=== PATIENT | female | born 1940 | race Caucasian/White ===

== ENCOUNTER 2017-12-01 09:27 | Outpatient (CLI) | payer MEDICARE, MEDICAID, SELFPAY ==
[2017-12-01 11:37] LABS: INR 2.2 (1.0-3.5)
[2017-12-01 12:25] LABS: TSH (W/Ref FT4) 1.13 uIU/mL (0.358-3.74)
== END 2017-12-01 09:47 ==
PROVIDERS: PCP Family Medicine; Visit Provider Internal Medicine
DX: E03.9 Hypothyroidism, unspecified (principal); I26.99 Other pulmonary embolism without acute cor pulmonale; Z79.01 Long term (current) use of anticoagulants
CPT/HCPCS: 36415; 84443; 85610

== ENCOUNTER 2018-07-27 02:02 | Outpatient (CLI) | payer MEDICARE, MEDICAID, SELFPAY ==
[2018-07-27 15:48] LABS: Abs Immature Grans 0.02 k/cumm (0.0-0.09); Absolute Basophil Count 0.03 k/cumm (0.0-0.2); Absolute Eosinophil Count 0.08 k/cumm (0.0-0.7); Absolute Lymphocyte Count 1.68 k/cumm (1.2-3.4); Absolute Monocyte Count 0.56 k/cumm (0.11-0.7); Absolute Neutrophil Count 5.71 k/cumm (1.2-6.7); Basophils % 0.4; HCT 41.3 % (36.0-46.0); HGB 13.3 g/dL (12.0-15.5); Immature Grans % 0.2; Lymphocytes % 20.8; Mean Corp. HGB Concentration 32.2 g/dL (32.0-36.0); Mean Corpuscular Hemoglobin 28.9 pg (27.0-33.0); Mean Corpuscular Volume 89.6 fL (80-95); Mean Platelet Volume 10.7 fL (8.0-11.0); Monocytes % 6.9; Neutrophils % 70.7; Platelet Count 235 x1000/uL (130-400); RBC 4.61 m/cumm (4.00-5.20); RBC Distribution Width 14.8 % (11.7-14.6); White Blood Cell Count 8.08 k/cumm (4.4-10.8)
[2018-07-27 16:47] LABS: ALT 52 U/L (12-78); AST 42 U/L (15-37); Albumin 3.8 g/dL (3.4-5.0); Alkaline Phosphatase 89 U/L (46-116); Anion Gap 10.7 mmol/L (3-11); BUN 24 mg/dL (7-18); Bilirubin, Total 0.3 mg/dL (0.2-1.0); CO2 25.3 mmol/L (21.0-32.0); CREATININE 0.91 mg/dL (0.55-1.02); Calcium 8.7 mg/dL (8.5-10.1); Chloride 106 mmol/L (98-107); Estimated GFR 59.94 (mL/min/1.73m2); Glucose 103 mg/dL (70-100); Sodium 142 mmol/L (136-145); Total Protein 6.8 g/dL (6.4-8.2)
== END 2018-07-27 02:22 ==
PROVIDERS: Internal Medicine; PCP Family Medicine; Visit Provider Family Medicine
DX: R10.9 Unspecified abdominal pain (principal); I10 Essential (primary) hypertension; E03.9 Hypothyroidism, unspecified
CPT/HCPCS: 36415; 80053; 85025

== ENCOUNTER 2018-08-04 13:22 | Emergency (ER) | payer MEDICARE, MEDICAID, SELFPAY ==
[2018-08-04] VITALS (24 sets, daily range): BP systolic 151–183; BP diastolic 35–101; PULSE 40–45; RESP 12–21; TEMP 36.8–37; O2SAT 89–98
[2018-08-04 13:52] LABS: Abs Immature Grans 0.01 k/cumm (0.0-0.09); Absolute Basophil Count 0.02 k/cumm (0.0-0.2); Absolute Eosinophil Count 0.16 k/cumm (0.0-0.7); Absolute Lymphocyte Count 1.24 k/cumm (1.2-3.4); Absolute Monocyte Count 0.64 k/cumm (0.11-0.7); Absolute Neutrophil Count 5.99 k/cumm (1.2-6.7); Basophils % 0.2; HCT 42.1 % (36.0-46.0); HGB 13.6 g/dL (12.0-15.5); Immature Grans % 0.1; Lymphocytes % 15.4; Mean Corp. HGB Concentration 32.3 g/dL (32.0-36.0); Mean Corpuscular Hemoglobin 28.9 pg (27.0-33.0); Mean Corpuscular Volume 89.4 fL (80-95); Mean Platelet Volume 10.7 fL (8.0-11.0); Monocytes % 7.9; Neutrophils % 74.4; Platelet Count 194 x1000/uL (130-400); RBC 4.71 m/cumm (4.00-5.20); RBC Distribution Width 14.9 % (11.7-14.6); White Blood Cell Count 8.06 k/cumm (4.4-10.8)
--- NOTE | 2018-08-04 14:03 | DI.CT_ITS ---
SYMPTOMS/DIAGNOSIS: H/O PE AND RECURRENT PNEUMONIA CHEST CT FOR PULMONARY EMBOLISM: CT angiography was performed with multi slice acquisition and multi planar and 3D reconstruction. Comparison is made with chest CT of October,. There is no evidence of pulmonary emboli or aortic dissection. No pleural or pericardial effusions or pneumothorax is seen. Degenerative changes are seen in the spine, with prominent endplate osteophytes. A bone island is noted in the lower thoracic spine, unchanged. Sternal wires are seen. The lungs show mild scarring in the anterior right upper lobe and lateral right middle lobe. There is mild respiratory motion at the lung bases. No pulmonary nodules, infiltrates or adenopathy is seen. The visualized portions of the upper abdomen are grossly unremarkable. IMPRESSION: No acute abnormality.
[2018-08-04 14:12] LABS: ALT 52 U/L (12-78); AST 36 U/L (15-37); Albumin 3.7 g/dL (3.4-5.0); Alkaline Phosphatase 95 U/L (46-116); Anion Gap 9.1 mmol/L (3-11); BUN 20 mg/dL (7-18); Bilirubin, Total 0.5 mg/dL (0.2-1.0); CO2 26.9 mmol/L (21.0-32.0); CREATININE 1.05 mg/dL (0.55-1.02); Chloride 104 mmol/L (98-107); Estimated GFR 50.82 (mL/min/1.73m2); Glucose 123 mg/dL (70-100); Potassium 3.9 mmol/L (3.5-5.1); Sodium 140 mmol/L (136-145); TSH (W/Ref FT4) 2.03 uIU/mL (0.358-3.74); Total Protein 7.5 g/dL (6.4-8.2)
[2018-08-04 14:14] LABS: Troponin I < 0.02 ng/mL (0.00-0.06)
[2018-08-04 14:26] LABS: PTT Activated 30.3 sec (21.0-31.4); Prothrombin Time 19.7 sec (9.3-11.0)
[2018-08-04] MEDS: methylPREDNISolone SUCC 125 MG VIAL IVP (14:27)
[2018-08-04] MEDS: Albuterol/Ipratropium 3 ML UPD VIAL UPD (14:27)
--- NOTE | 2018-08-04 14:45 | W.ED.GENAD ---
Discharge Plan Disposition Patient Disposition: HOME Condition: Good Discharge Details Chief Complaint: RespSymp Clinical Impression: Atypical pneumonia, Exacerbation of reactive airway disease Primary Care Provider: Lexus Hayes ED Provider: Landry Tee Home Meds and New Rx's Prescriptions: New prednisone 50 MG tablet 50 mg PO DAILY Qty: 5 RF: 0 doxycycline hyclate 100 mg tablet 100 mg PO BID Qty: 20 RF: 0 Continued levothyroxine 25 MCG tablet 3 - 4 tab PO DAILY Qty: 300 RF: 4 warfarin 5 mg tablet 5 mg PO DAILY Qty: 90 RF: 4 diltiazem HCl [Tiazac] 180 mg capsule,extended release 24 hr 180 mg PO BID RF: 0 hydrocodone-chlorpheniramine 10-8 mg/5 mL Suspension,Extended Rel 12 Hr 5 ml PO Q12H PRNRF: 0 Discontinued amoxicillin 500 mg capsule 2 gm PO DIRECTED Qty: 12 RF: 6 Discharge Instructions Instructions: Reactive Airways Disease (ED), Pneumonia (ED) Additional Instructions: Please take the doxycycline as directed. 1 pill twice daily. Please take the steroid and inhaler as directed. If you notice any worsening of your symptoms, or any new symptoms such as vomiting, diarrhea, fever, chills, shortness of breath, chest pain, numbness, weakness, or fainting , please return immediately to the emergency department for reevaluation. Please follow up with your primary care provider as soon as possible for reassessment and reevaluation. As always, it was a pleasure participating in your medical care today. Referrals: Lexus Hayes MD [Primary Care Provider] - Discharge Data Discharge Date/Time-TO BE ENTERED AT DEPARTURE: 08/04/18 16:47 Medical Decision Making This is a pleasant 77-year-old female with a past medical history of chronic right bundle branch block, subaortic resection, PEs in the past, thyroid disease, who presents for evaluation of cough. Patient states that in June her symptoms started, she underwent a dose of cefuroxime, and had some mild improvement of her symptoms however over the last few days she has had notable worsening. She did feel significantly lightheaded, and was seen and assessed by her cloth folder machine just a few days ago where a 0 patch was placed. Since then over the last 48 hours she has had slight worsening of the cough, with increased sputum production. She denies fever chills or chest pain. She does admit to mild back pain. She denies any syncope since she was seen by her cloth folder machine. The zio patch is remained in place. She denies any hemoptysis, calf tenderness, or other complaints. Physical exam demonstrates crackles and rhonchi throughout in association with a mild wheeze in the lung ash. Patient is mildly bradycardic, she states that normally her heart rate is low in the 50s, but not as often in the 40s. Differential is broad but includes atypical pneumonia causing her bradycardia, electrolyte abnormality, less likely ACS, PEs. We will get a CT scan for further differentiation, and acute evaluation of the lungs, gently rehydrate, perform laboratory work-up, and reassess. CT results have returned and show evidence of mild chronic interstitial disease and scarring as well as some mild groundglass opacities. No focal consolidation. The patient's clinical symptoms of worsening cough, worsening productive sputum, I am concerned that there may be an acute infectious component. No evidence of pulmonary abdomen with him per virtual radiologist. Patient's EKG demonstrates a left bundle branch block, no acute abnormality suggesting ACS. Laboratory work-up demonstrates a normal white count, no bandemia. INR is 2.0, electrolytes are normal, renal function stable. Troponin is normal and TSH is normal. We did give the patient a breathing treatment and a dose of Solu-Medrol, she has notable improvement of her symptoms with this. We did do an ambulatory test, ambulated the patient around the department. Heart rate remained in the 50s, oxygen remained greater than 92% at all times. She did have a coughing episode which brought her down to 89% however this resolved within seconds after coughing. The patient states that she feels well at this time, and feels comfortable going home. The patient's heart rate is low, however she states that it was at this level when she saw her cloth folder machine is 2 to 3 days ago and was given the okay. She still does have been zio patch. She is taking diltiazem. I discussed with her the risks and benefits of discharge versus admission for observation, and at this time the patient states that she would like to go home. Contacted the patient's daughter as well as her son-in-law both of whom are physicians, discussed the case, the patient's findings, as well as the patient's current wishes. They are shared decision making process utilizing family, and the patient, understanding the risks and benefits the patient will be discharged home respecting her request. She demonstrates normal oxygenation, no signs of severe respiratory distress, no signs of sepsis, and her blood pressure remains stable and even during the coughing episode in the ambulation she had no symptoms of lightheadedness, dizziness near syncope or syncope. We will start her on doxycycline, prednisone for 5 days, and albuterol with a spacer. Discussed the importance of close and prompt follow-up with her cloth folder machine, as well as prompt and near immediate return if she has any worsening of her symptoms. She has a notable respiratory support technician at home, and has no additional questions or concerns. I have extensively reviewed the treatment plan and discharge instructions with the patient and their family. I have addressed all patient concerns at this time. The patient and family was made aware of what symptoms to monitor for that would warrant a return to the emergency department. Discussed the plan with the patient and family, they demonstrate verbal understanding and agreement with our assessment and plan at this time. EKG 13: 36 Rate 43, GA 260, QTc 424, QRS 156, sinus bradycardia with a first-degree AV block, notable left bundle branch, negative for SCARBOSSA criterion. Unchanged from prior EKG on 11/06/2015 CLINICAL HISTORY: 77 years old, female; Signs and symptoms; Other: HX of pe's and recurrent pneumonia TECHNIQUE: Imaging protocol: Axial computed tomographic angiography images of the chest with intravenous contrast using CT angiography protocol. Coronal and sagittal reformatted images were created and reviewed. 3D rendering: MIP reconstructed images were created and reviewed. Radiation optimization: All CT scans at this facility use at least one of these dose optimization techniques: automated exposure control; mA and/or kV adjustment per patient size (includes targeted exams where dose is matched to clinical indication); or iterative reconstruction. Contrast material: OMNIPAQUE 350; Contrast volume: 100 ml; Contrast route: IV; COMPARISON: CT CHEST FOR PULMONARY EMBOLUS 01/01/2016 2:35 PM FINDINGS: No evidence of PE. Mild interstitial lung scarring with minimal groundglass opacity suggesting a very mild chronic alveolitis. No significant focal consolidation. No pleural effusion. No pneumothorax. No adenopathy. Unremarkable upper abdomen. No acute mediastinal or aortic abnormality. Probable small bone island in the lower thoracic spine unchanged from the prior exam. IMPRESSION: No specific etiology identified for the patient's symptoms. Dictated and Authenticated by: Chele Owen MD. Ordering:PIERO Alatorre MD [facility] General Date/Time Provider Initiated Documentation: 08/04/18 13:42. HPI Narrative: This is a 77-year-old female with a past medical history of thyroid disease, previous pulmonary emboli currently on Coumadin, subaortic resection surgery years ago with subsequent right bundle branch block, who presents today for evaluation of cough and mild shortness of breath. The patient states that she was in the [facility] in June visiting her grandbabies, at that time she had a mild cough, was started on cefuroxime. She had a complete course of this and did have some improvement of her symptoms, cough was improved with hydrocodone liquid however over the last 2 to 3 days she has noticed a repeat worsening of her cough, her sputum has gone from clear to slightly color tinged. She denies any hemoptysis. She becomes near syncopal when she coughs, gets very lightheaded. She denies any fevers or chills. She denies any vomiting or diarrhea. She denies any headache or chest pain or chest pressure, however she does admit to some mild back pain whenever she does cough. She denies any tearing sensation in her chest. She states that this feels different than when she had her PEs. The patient denies any history of lung disease, however she did get measles as a child and does admit to frequent episodes of URIs and pneumonia. She enies any other complaints at this time. No other modifying factors. She denies any history of cardiac STEMI, stents, or recent stress test. She does see her cloth folder machine Dr Robert in [place]. Related Data Home Medications Medication Instructions Recorded Confirmed levothyroxine 3 - 4 tab PO DAILY #300 tab-cap NS 11/15/17 08/04/18 warfarin 5 mg tablet 5 mg PO DAILY #90 tab 02/05/18 08/04/18 diltiazem HCl [Tiazac] 180 mg PO BID 08/04/18 08/04/18 doxycycline hyclate 100 mg PO BID #20 tab 08/04/18 hydrocodone-chlorpheniramine 5 ml PO Q12H PRN 08/04/18 08/04/18 prednisone 50 mg PO DAILY #5 tab 08/04/18 Previous Rx's Medication Instructions Recorded levothyroxine 3 - 4 tab PO DAILY #300 tab-cap NS 11/15/17 warfarin 5 mg tablet 5 mg PO DAILY #90 tab 02/05/18 doxycycline hyclate 100 mg PO BID #20 tab 08/04/18 prednisone 50 mg PO DAILY #5 tab 08/04/18 Allergies Allergy/AdvReac Type Severity Reaction Status Date / Time lidocaine Allergy Severe rash Unverified 08/04/18 13:52 talc Allergy Severe TALC IN Unverified 08/04/18 13:52 PILLS diphenhydramine Allergy Unknown CAN'T TAKE Unverified 08/04/18 13:52 ANY ANTIHISTAMINES chlorthalidone AdvReac Severe H/ Unverified 08/04/18 13:52 ciprofloxacin HCl AdvReac Intermediate HEART Unverified 08/04/18 13:52 [From Cipro] ARRTHY metoprolol AdvReac Intermediate HEART Unverified 08/04/18 13:52 ARRYTH gabapentin AdvReac Mild DIZZINESS, Unverified 08/04/18 13:52 LIGHTHEADED hydrochlorothiazide AdvReac Mild STOP Unverified 08/04/18 13:52 VOIDING famotidine [From Pepcid] AdvReac Unknown unknown Unverified 08/04/18 13:52 GARLIC Allergy Severe THROAT Uncoded 08/04/18 13:52 SWELLS LOCAL ANESTHETICS Allergy Intermediate Skin Rash Uncoded 08/04/18 13:52 tape Allergy Mild Skin Rash Uncoded 08/04/18 13:52 General Stated Complaint: RespSymp PAOLA: 3 Review of Systems Review of Systems All systems reviewed & are unremarkable except as noted in HPI and below PFSH Surgical History Biopsy of breast (~06/1987) HEART SURGERY (~12/1994) Hysterectomy, Laproscopic (~1984) Meniscectomy Open Carpal Tunnel release Tonsillectomy (~1945) Family History Mother Heart failure Heart disease Pneumonia Father Personal history of malignant neoplasm Sister Personal history of malignant neoplasm Grandfather Heart disease Stroke Grandfather Heart failure Personal history of malignant neoplasm Grandmother Personal history of malignant neoplasm Grandmother No problems noted. Social History Smoking/Tobacco Use Status: Never Drug use: Never Duration: 15-30 minutes/day Do you feel safe at home: Yes Do you feel safe in your relationship?: Yes Exam Narrative Exam Narrative: 1.Const: Well-nourished, Well-developed, appearing stated age 2.Eyes: PERRL, no conjunctival injection, and symmetrical lids. 3.ENT: Atraumatic external nose and ears. Moist MM. Neck: Symmetric, trachea midline, No thyromegaly. 4.CVS: +S1/S2, No murmurs or gallops. Peripheral pulses 2+ and equal in all extremities. Brisk capillary refill in all extremities. 5.RESP: Unlabored respiratory effort. Mild crackles and rhonchi throughout, worse in the upper lung ash. 6.GI: Soft, Nontender/Nondistended, No hepatosplenomegaly. No guarding or rebound. 7.MSK: Normocephalic/Atraumatic, Extremities w/o deformity or ttp No cyanosis or clubbing, Normal movement of all extremities 8.Skin: Warm, Dry. No rashes or lesions. 9.Neuro: fiber machine tender II-XII grossly intact. Sensation grossly intact, no focal neurologic deficits. All 6 cardinal planes of vision are fully intact. No evidence of rotatory or vertical nystagmus. The patient demonstrated a normal [id number], good dexterity. There was no evidence of dysdiadochokinesia. Patient was able to ambulate without difficulty. There was no wide-based gait. Romberg, and [id number] are both normal on testing. Sensation was intact bilaterally as well as muscle strength bilaterally for all extremities. Patient was able to verbalize butter cup with no slurring, or miss pronunciation. 10.Psych: (AAO) x3. Appropriate mood and affect Course Vital Signs Temperature 36.8 C 08/04/18 13:25 Pulse 45 L 08/04/18 13:25 Respiratory Rate 18 08/04/18 13:25 Blood Pressure 179/51 H 08/04/18 13:25 Pulse Oximetry 95 08/04/18 13:25 Temperature 36.8 C 08/04/18 13:25 Temperature Source Temporal Artery Scan 08/04/18 13:25 Pulse 41 L 08/04/18 14:16 Pulse 43 L 08/04/18 14:16 Respiratory Rate 20 08/04/18 14:16 Respiratory Effort Non-Labored 08/04/18 13:50 Blood Pressure 173/38 H 08/04/18 14:16 Blood Pressure Mean 74 08/04/18 14:16 Blood Pressure Position Sitting 08/04/18 13:25 Pulse Oximetry 90 L 08/04/18 14:16 Oxygen Delivery Method Room Air 08/04/18 13:25 Oxygen Flow Rate 0 08/04/18 13:25 Pain Level 3 08/04/18 13:25 Lab/Test Results Lab/Test Results: Laboratory Tests Range/Units 08/04/18 08/04/18 08/04/18 13:43 13:43 13:43 WBC (4.4-10.8) k/cumm 8.06 RBC (4.00-5.20) m/cumm 4.71 Hgb (12.0-15.5) g/dL 13.6 Hct (36.0-46.0) % 42.1 MCV (80-95) fL 89.4 MCH (27.0-33.0) pg 28.9 MCHC (32.0-36.0) g/dL 32.3 RDW (11.7-14.6) % 14.9 H Plt Count (130-400) x1000/uL 194 MPV (8.0-11.0) fL 10.7 Immature Gran % 0.1 Neutrophils % 74.4 Lymphocytes % 15.4 Monocytes % 7.9 Eosinophils % 2.0 Basophils % 0.2 Absolute Neutrophils (1.2-6.7) k/cumm 5.99 Absolute Lymphocytes (1.2-3.4) k/cumm 1.24 Absolute Monocytes (0.11-0.7) k/cumm 0.64 Absolute Eosinophils (0.0-0.7) k/cumm 0.16 Absolute Basophils (0.0-0.2) k/cumm 0.02 PT (9.3-11.0) sec 19.7 H INR (0.9-1.1) 2.0 H APTT (21.0-31.4) sec 30.3 Sodium (136-145) mmol/L 140 Potassium (3.5-5.1) mmol/L 3.9 Chloride (98-107) mmol/L 104 Carbon Dioxide (21.0-32.0) mmol/L 26.9 Anion Gap (3-11) mmol/L 9.1 BUN (7-18) mg/dL 20 H Creatinine (0.55-1.02) mg/dL 1.05 H Estimated GFR/1.73 m2 (mL/min/1.73m2) 50.82 Glucose (70-100) mg/dL 123 H Calcium (8.5-10.1) mg/dL 9.0 Total Bilirubin (0.2-1.0) mg/dL 0.5 AST (15-37) U/L 36 ALT (12-78) U/L 52 Alkaline Phosphatase (46-116) U/L 95 Troponin I (0.00-0.06) ng/mL < 0.02 Total Protein (6.4-8.2) g/dL 7.5 Albumin (3.4-5.0) g/dL 3.7 TSH (0.358-3.74) uIU/mL 2.03
--- NOTE | 2018-08-04 14:48 | ED.GENADUL_ITS ---
Discharge Plan Disposition Patient Disposition: HOME Condition: Good Discharge Details Chief Complaint: RespSymp Clinical Impression: Atypical pneumonia, Exacerbation of reactive airway disease Primary Care Provider: Lexus Hayes ED Provider: Landry Tee Home Meds and New Rx's Prescriptions: New prednisone 50 MG tablet 50 mg PO DAILY Qty: 5 RF: 0 doxycycline hyclate 100 mg tablet 100 mg PO BID Qty: 20 RF: 0 Continued levothyroxine 25 MCG tablet 3 - 4 tab PO DAILY Qty: 300 RF: 4 warfarin 5 mg tablet 5 mg PO DAILY Qty: 90 RF: 4 diltiazem HCl [Tiazac] 180 mg capsule,extended release 24 hr 180 mg PO BID RF: 0 hydrocodone-chlorpheniramine 10-8 mg/5 mL Suspension,Extended Rel 12 Hr 5 ml PO Q12H PRNRF: 0 Discontinued amoxicillin 500 mg capsule 2 gm PO DIRECTED Qty: 12 RF: 6 Discharge Instructions Instructions: Reactive Airways Disease (ED), Pneumonia (ED) Additional Instructions: Please take the doxycycline as directed. 1 pill twice daily. Please take the steroid and inhaler as directed. If you notice any worsening of your symptoms, or any new symptoms such as vomiting, diarrhea, fever, chills, shortness of breath, chest pain, numbness, weakness, or fainting , please return immediately to the emergency department for reevaluation. Please follow up with your primary care provider as soon as possible for reassessment and reevaluation. As always, it was a pleasure participating in your medical care today. Referrals: Lexus Hayes MD [Primary Care Provider] - Discharge Data Discharge Date/Time-TO BE ENTERED AT DEPARTURE: 08/04/18 16:47 Medical Decision Making This is a pleasant 77-year-old female with a past medical history of chronic right bundle branch block, subaortic resection, PEs in the past, thyroid disease, who presents for evaluation of cough. Patient states that in June her symptoms started, she underwent a dose of cefuroxime, and had some mild improvement of her symptoms however over the last few days she has had notable worsening. She did feel significantly lightheaded, and was seen and assessed by her medical clerical assistant just a few days ago where a 0 patch was placed. Since then over the last 48 hours she has had slight worsening of the cough, with increased sputum production. She denies fever chills or chest pain. She does admit to mild back pain. She denies any syncope since she was seen by her medical clerical assistant. The zio patch is remained in place. She denies any hemoptysis, calf tenderness, or other complaints. Physical exam demonstrates crackles and rhonchi throughout in association with a mild wheeze in the lung ash. Patient is mildly bradycardic, she states that normally her heart rate is low in the 50s, but not as often in the 40s. Differential is broad but includes atypical pneumonia causing her bradycardia, electrolyte abnormality, less likely ACS, PEs. We will get a CT scan for further differentiation, and acute evaluation of the lungs, gently rehydrate, perform laboratory work-up, and reassess. CT results have returned and show evidence of mild chronic interstitial disease and scarring as well as some mild groundglass opacities. No focal consolidation. The patient's clinical symptoms of worsening cough, worsening productive sputum, I am concerned that there may be an acute infectious component. No evidence of pulmonary abdomen with him per virtual radiologist. Patient's EKG demonstrates a left bundle branch block, no acute abnormality suggesting ACS. Laboratory work-up demonstrates a normal white count, no bandemia. INR is 2.0, electrolytes are normal, renal function stable. Troponin is normal and TSH is normal. We did give the patient a breathing treatment and a dose of Solu-Medrol, she has notable improvement of her symptoms with this. We did do an ambulatory test, ambulated the patient around the department. Heart rate remained in the 50s, oxygen remained greater than 92% at all times. She did have a coughing episode which brought her down to 89% however this resolved within seconds after coughing. The patient states that she feels well at this time, and feels comfortable going home. The patient's heart rate is low, however she states that it was at this level when she saw her medical clerical assistant is 2 to 3 days ago and was given the okay. She still does have been zio patch. She is taking diltiazem. I discussed with her the risks and benefits of discharge versus admission for observation, and at this time the patient states that she would like to go home. Contacted the patient's daughter as well as her son-in-law both of whom are physicians, discussed the case, the patient's findings, as well as the patient's current wishes. They are shared decision making process utilizing family, and the patient, understanding the risks and benefits the patient will be discharged home respecting her request. She demonstrates normal oxygenation, no signs of severe respiratory distress, no signs of sepsis, and her blood pressure remains stable and even during the coug jordan episode in the ambulation she had no symptoms of lightheadedness, dizziness near syncope or syncope. We will start her on doxycycline, prednisone for 5 days, and albuterol with a spacer. Discussed the importance of close and prompt follow-up with her medical clerical assistant, as well as prompt and near immediate return if she has any worsening of her symptoms. She has a notable technician support association at home, and has no additional questions or concerns. I have extensively reviewed the treatment plan and discharge instructions with the patient and their family. I have addressed all patient concerns at this time. The patient and family was made aware of what symptoms to monitor for that would warrant a return to the emergency department. Discussed the plan with the patient and family, they demonstrate verbal understanding and agreement with our assessment and plan at this time. EKG 13: 36 Rate 43, NH 260, QTc 424, QRS 156, sinus bradycardia with a first-degree AV block, notable left bundle branch, negative for SCARBOSSA criterion. Unchanged from prior EKG on 11/06/2015 CLINICAL HISTORY: 77 years old, female; Signs and symptoms; Other: HX of pe's and recurrent pneumonia TECHNIQUE: Imaging protocol: Axial computed tomographic angiography images of the chest with intravenous contrast using CT angiography protocol. Coronal and sagittal reformatted images were created and reviewed. 3D rendering: MIP reconstructed images were created and reviewed. Radiation optimization: All CT scans at this facility use at least one of these dose optimization techniques: automated exposure control; mA and/or kV adjustment per patient size (includes targeted exams where dose is matched to clinical indication); or iterative reconstruction. Contrast material: OMNIPAQUE 350; Contrast volume: 100 ml; Contrast route: IV; COMPARISON: CT CHEST FOR PULMONARY EMBOLUS 01/01/2016 2:35 PM FINDINGS: No evidence of PE. Mild interstitial lung scarring with minimal groundglass opacity suggesting a very mild chronic alveolitis. No significant focal consolidation. No pleural effusion. No pneumothorax. No adenopathy. Unremarkable upper abdomen. No acute mediastinal or aortic abnormality. Probable small bone island in the lower thoracic spine unchanged from the prior exam. IMPRESSION: No specific etiology identified for the patient's symptoms. Dictated and Authenticated by: Chele Owen MD. Ordering:PIERO Alatorre MD HPI General Date/Time Provider Initiated Documentation: 08/04/18 13:42 . HPI Narrative: This is a 77-year-old female with a past medical history of thyroid disease, previous pulmonary emboli currently on Coumadin, subaortic resection surgery years ago with subsequent right bundle branch block, who presents today for evaluation of cough and mild shortness of breath. The patient states that she was in the [facility] in June visiting her grandbabies, at that time she had a mild cough, was started on cefuroxime. She had a complete course of this and did have some improvement of her symptoms, cough was improved with hydrocodone liquid however over the last 2 to 3 days she has noticed a repeat worsening of her cough, her sputum has gone from clear to slightly color tinged. She denies any hemoptysis. She becomes near syncopal when she coughs, gets very lightheaded. She denies any fevers or chills. She denies any vomiting or diarrhea. She denies any headache or chest pain or chest pressure, however she does admit to some mild back pain whenever she does cough. She denies any tearing sensation in her chest. She states that this feels different than when she had her PEs. The patient denies any history of lung disease, however she did get measles as a child and does admit to frequent episodes of URIs and pneumonia. She enies any other complaints at this time. No other modifying factors. She denies any history of cardiac STEMI, stents, or recent stress test. She does see her medical clerical assistant Dr Robert in [place]. Related Data Home Medications Medication Instructions Recorded Confirmed levothyroxine 3 - 4 tab PO DAILY #300 tab-cap NS 11/15/17 08/04/18 warfarin 5 mg tablet 5 mg PO DAILY #90 tab 02/05/18 08/04/18 diltiazem HCl [Tiazac] 180 mg PO BID 08/04/18 08/04/18 doxycycline hyclate 100 mg PO BID #20 tab 08/04/18 hydrocodone-chlorpheniramine 5 ml PO Q12H PRN 08/04/18 08/04/18 prednisone 50 mg PO DAILY #5 tab 08/04/18 Previous Rx's Medication Instructions Recorded levothyroxine 3 - 4 tab PO DAILY #300 tab-cap NS 11/15/17 warfarin 5 mg tablet 5 mg PO DAILY #90 tab 02/05/18 doxycycline hyclate 100 mg PO BID #20 tab 08/04/18 prednisone 50 mg PO DAILY #5 tab 08/04/18 Allergies Allergy/AdvReac Type Severity Reaction Status Date / Time lidocaine Allergy Severe rash Unverified 08/04/18 13:52 talc Allergy Severe TALC IN Unverified 08/04/18 13:52 PILLS diphenhydramine Allergy Unknown CAN'T TAKE Unverified 08/04/18 13:52 ANY ANTIHISTAMINES chlorthalidone AdvReac Severe H/ Unverified 08/04/18 13:52 ciprofloxacin HCl AdvReac Intermediate HEART Unverified 08/04/18 13:52 [From Cipro] ARRTHY metoprolol AdvReac Intermediate HEART Unverified 08/04/18 13:52 ARRYTH gabapentin AdvReac Mild DIZZINESS, Unverified 08/04/18 13:52 LIGHTHEADED hydrochlorothiazide AdvReac Mild STOP Unverified 08/04/18 13:52 VOIDING famotidine [From Pepcid] AdvReac Unknown unknown Unverified 08/04/18 13:52 GARLIC Allergy Severe THROAT Uncoded 08/04/18 13:52 SWELLS LOCAL ANESTHETICS Allergy Intermediate Skin Rash Uncoded 08/04/18 13:52 tape Allergy Mild Skin Rash Uncoded 08/04/18 13:52 General Stated Complaint: RespSymp PAOLA: 3 Review of Systems Review of Systems All systems reviewed & are unremarkable except as noted in HPI and below PFSH Surgical History Biopsy of breast (~06/1987) HEART SURGERY (~12/1994) Hysterectomy, Laproscopic (~1984) Meniscectomy Open Carpal Tunnel release Tonsillectomy (~1945) Family History Mother Heart failure Heart disease Pneumonia Father Personal history of malignant neoplasm Sister Personal history of malignant neoplasm Grandfather Heart disease Stroke Grandfather Heart failure Personal history of malignant neoplasm Grandmother Personal history of malignant neoplasm Grandmother No problems noted. Social History Smoking/Tobacco Use Status: Never Drug use: Never Duration: 15-30 minutes/day Do you feel safe at home: Yes Do you feel safe in your relationship?: Yes Exam Narrative Exam Narrative: 1.Const: Well-nourished, Well-developed, appearing stated age 2.Eyes: PERRL, no conjunctival injection, and symmetrical lids. 3.ENT: Atraumatic external nose and ears. Moist MM. Neck: Symmetric, trachea midline, No thyromegaly. 4.CVS: +S1/S2, No murmurs or gallops. Peripheral pulses 2+ and equal in all extremities. Brisk capillary refill in all extremities. 5.RESP: Unlabored respiratory effort. Mild crackles and rhonchi throughout, worse in the upper lung ash. 6.GI: Soft, Nontender/Nondistended, No hepatosplenomegaly. No guarding or rebound. 7.MSK: Normocephalic/Atraumatic, Extremities w/o deformity or ttp No cyanosis or clubbing, Normal movement of all extremities 8.Skin: Warm, Dry. No rashes or lesions. 9.Neuro: spanish translator II-XII grossly intact. Sensation grossly intact, no focal neurologic deficits. All 6 cardinal planes of vision are fully intact. No evidence of rotatory or vertical nystagmus. The patient demonstrated a normal [id number], good dexterity. There was no evidence of dysdiadochokinesia. Patient was able to ambulate without difficulty. There was no wide-based gait. Romberg, and ahzw-lg-yrig are both normal on testing. Sensation was intact bilaterally as well as muscle strength bilaterally for all extremities. Patient was able to verbalize butter cup with no slurring, or miss pronunciation. 10.Psych: (AAO) x3. Appropriate mood and affect Course Vital Signs Temperature 36.8 C 08/04/18 13:25 Pulse 45 L 08/04/18 13:25 Respiratory Rate 18 08/04/18 13:25 Blood Pressure 179/51 H 08/04/18 13:25 Pulse Oximetry 95 08/04/18 13:25 Temperature 36.8 C 08/04/18 13:25 Temperature Source Temporal Artery Scan 08/04/18 13:25 Pulse 41 L 08/04/18 14:16 Pulse 43 L 08/04/18 14:16 Respiratory Rate 20 08/04/18 14:16 Respiratory Effort Non-Labored 08/04/18 13:50 Blood Pressure 173/38 H 08/04/18 14:16 Blood Pressure Mean 74 08/04/18 14:16 Blood Pressure Position Sitting 08/04/18 13:25 Pulse Oximetry 90 L 08/04/18 14:16 Oxygen Delivery Method Room Air 08/04/18 13:25 Oxygen Flow Rate 0 08/04/18 13:25 Pain Level 3 08/04/18 13:25 Lab/Test Results Lab/Test Results: Laboratory Tests Range/Units 08/04/18 08/04/18 08/04/18 13:43 13:43 13:43 WBC (4.4-10.8) k/cumm 8.06 RBC (4.00-5.20) m/cumm 4.71 Hgb (12.0-15.5) g/dL 13.6 Hct (36.0-46.0) % 42.1 MCV (80-95) fL 89.4 MCH (27.0-33.0) pg 28.9 MCHC (32.0-36.0) g/dL 32.3 RDW (11.7-14.6) % 14.9 H Plt Count (130-400) x1000/uL 194 MPV (8.0-11.0) fL 10.7 Immature Gran % 0.1 Neutrophils % 74.4 Lymphocytes % 15.4 Monocytes % 7.9 Eosinophils % 2.0 Basophils % 0.2 Absolute Neutrophils (1.2-6.7) k/cumm 5.99 Absolute Lymphocytes (1.2-3.4) k/cumm 1.24 Absolute Monocytes (0.11-0.7) k/cumm 0.64 Absolute Eosinophils (0.0-0.7) k/cumm 0.16 Absolute Basophils (0.0-0.2) k/cumm 0.02 PT (9.3-11.0) sec 19.7 H INR (0.9-1.1) 2.0 H APTT (21.0-31.4) sec 30.3 Sodium (136-145) mmol/L 140 Potassium (3.5-5.1) mmol/L 3.9 Chloride (98-107) mmol/L 104 Carbon Dioxide (21.0-32.0) mmol/L 26.9 Anion Gap (3-11) mmol/L 9.1 BUN (7-18) mg/dL 20 H Creatinine (0.55-1.02) mg/dL 1.05 H Estimated GFR/1.73 m2 (mL/min/1.73m2) 50.82 Glucose (70-100) mg/dL 123 H Calcium (8.5-10.1) mg/dL 9.0 Total Bilirubin (0.2-1.0) mg/dL 0.5 AST (15-37) U/L 36 ALT (12-78) U/L 52 Alkaline Phosphatase (46-116) U/L 95 Troponin I (0.00-0.06) ng/mL < 0.02 Total Protein (6.4-8.2) g/dL 7.5 Albumin (3.4-5.0) g/dL 3.7 TSH (0.358-3.74) uIU/mL 2.03
[2018-08-04] MEDS: Omnipaque 350 MG/ML 100 ML BTL IJ (15:02)
[2018-08-04] MEDS: Normal Saline Flush 10 ML SYR IVP (15:03)
[2018-08-04] MEDS: Normal Saline 1,000 ML 1000 ML IV (15:14)
--- NOTE | 2018-08-04 15:21 | DI.VRAD_ITS ---
EXAM: CT Angiography Chest With Contrast EXAM DATE/TIME: 08/04/2018 2:04 PM CLINICAL HISTORY: 77 years old, female; Signs and symptoms; Other: HX of pe's and recurrent pneumonia TECHNIQUE: Imaging protocol: Axial computed tomographic angiography images of the chest with intravenous contrast using CT angiography protocol. Coronal and sagittal reformatted images were created and reviewed. 3D rendering: MIP reconstructed images were created and reviewed. Radiation optimization: All CT scans at this facility use at least one of these dose optimization techniques: automated exposure control; mA and/or kV adjustment per patient size (includes targeted exams where dose is matched to clinical indication); or iterative reconstruction. Contrast material: OMNIPAQUE 350; Contrast volume: 100 ml; Contrast route: IV; COMPARISON: CT CHEST FOR PULMONARY EMBOLUS 01/01/2016 2:35 PM FINDINGS: No evidence of PE. Mild interstitial lung scarring with minimal groundglass opacity suggesting a very mild chronic alveolitis. No significant focal consolidation. No pleural effusion. No pneumothorax. No adenopathy. Unremarkable upper abdomen. No acute mediastinal or aortic abnormality. Probable small bone island in the lower thoracic spine unchanged from the prior exam. IMPRESSION: No specific etiology identified for the patient's symptoms. Dictated and Authenticated by: Chele Owen MD. Ordering:PIERO Alatorre MD
--- NOTE | 2018-08-04 16:06 | NUR.NOTE ---
Nursing Note: Ambulated patient about 700 feet around unit with pulse oximeter on. Patient's oxygen saturations remained between 90-92% on RA. Patient did have 2 bouts of coughing where she desat'd down to 88% but recovered to 92% afterward. Heart rate remained from 48-52 while ambulating. notified
[2018-08-04] MEDS: Albuterol HFA 8 GM 60 PUFF INH IH (16:10)
[2018-08-04] MEDS: Inhaler, Assist Device 1 EACH MC (16:11)
[2018-08-04] MEDS: Doxycycline Hyclate 100 MG CAP PO (16:11)
--- NOTE | 2018-08-06 08:56 | PDOC.ERCMPRO ---
Care Management Progress Note 08/06-Dr. Tee requested assistance with a cardiology f/u at [facility] in 1-[address] Robert, . Also needs PCP f/u as soon as possible. Dr. Hayes is PCP. Referral faxed to [facility] for PCP f/u and requested [facility] to make the cardiology f/u.
--- NOTE | 2018-08-06 08:58 | CMPROGNOTE_ITS ---
Care Management Progress Note 08/06-Dr. Tee requested assistance with a cardiology f/u at [facility] in 1-[address] Robert, . Also needs PCP f/u as soon as possible. Dr. Hayes is PCP. Referral faxed to [facility] for PCP f/u and requested [facility] to make the cardiology f/u.
== END 2018-08-04 16:47 | disposition home or self-care (01) ==
PROVIDERS: Emergency Provider Student in an Organized Health Care Education/Training Program; PCP Internal Medicine
DX: J18.9 Pneumonia, unspecified organism (principal); J45.901 Unspecified asthma with (acute) exacerbation; I44.7 Left bundle-branch block, unspecified; I10 Essential (primary) hypertension; I44.0 Atrioventricular block, first degree; Z79.01 Long term (current) use of anticoagulants
CPT/HCPCS: 36415; 71275; 80053; 93005; 96361; 96374; 99285; 84443; 84484; 85025; 85610; 85730; 93010; J2930; J3490; J7620

== ENCOUNTER 2018-08-13 10:09 | Emergency (ER) | payer MEDICARE, MEDICAID, SELFPAY ==
[2018-08-13] VITALS (22 sets, daily range): BP systolic 160–179; BP diastolic 36–54; PULSE 34–42; RESP 12–21; TEMP 36.8–37.2; O2SAT 94–96
--- NOTE | 2018-08-13 10:37 | DI.RAD_ITS ---
SYMPTOMS/DIAGNOSIS: COUGH, BRADYCARDIA PORTABLE CHEST: Comparison is made with [id number]. The heart size is within normal limits. Leads overlie the chest, somewhat obscuring visualization of the lungs. There is mild pulmonary scarring. No acute infiltrate, effusion or pulmonary edema is seen. IMPRESSION: No acute abnormality.
[2018-08-13 10:49] LABS: Abs Immature Grans 0.25 k/cumm (0.0-0.09); Absolute Eosinophil Count 0.13 k/cumm (0.0-0.7); Absolute Lymphocyte Count 2.16 k/cumm (1.2-3.4); Absolute Monocyte Count 1.28 k/cumm (0.11-0.7); Basophils % 0.2; HCT 44.4 % (36.0-46.0); HGB 14.3 g/dL (12.0-15.5); Immature Grans % 1.9; Lymphocytes % 16.5; Mean Corp. HGB Concentration 32.2 g/dL (32.0-36.0); Mean Corpuscular Hemoglobin 28.8 pg (27.0-33.0); Mean Corpuscular Volume 89.3 fL (80-95); Mean Platelet Volume 10.7 fL (8.0-11.0); Monocytes % 9.8; Neutrophils % 70.6; Platelet Count 216 x1000/uL (130-400); RBC 4.97 m/cumm (4.00-5.20); RBC Distribution Width 15.6 % (11.7-14.6); White Blood Cell Count 13.08 k/cumm (4.4-10.8)
[2018-08-13 10:50] LABS: Absolute Basophil Count 0.03 k/cumm (0.0-0.2); Absolute Neutrophil Count 9.23 k/cumm (1.2-6.7)
--- NOTE | 2018-08-13 10:54 | W.ED.GENAD ---
Discharge Plan Disposition Patient Disposition: MONTEZ HERRMANN ([facility]) Discharge Details Chief Complaint: GenMedical Clinical Impression: AV heart block, Bundle branch block, left Primary Care Provider: Lexus Hayes ED Provider: Tramaine Raygoza Home Meds and New Rx's Prescriptions: No Action levothyroxine 25 MCG tablet 3 - 4 tab PO DAILY Qty: 300 RF: 4 warfarin 5 mg tablet 5 mg PO DAILY Qty: 90 RF: 4 diltiazem HCl [Tiazac] 180 mg capsule,extended release 24 hr 180 mg PO BID Qty: 90 RF: 4 hydrocodone-chlorpheniramine 10-8 mg/5 mL Suspension,Extended Rel 12 Hr 5 ml PO Q12H PRNRF: 0 doxycycline hyclate 100 mg tablet 100 mg PO BID Qty: 20 RF: 0 Medical Decision Making 11:00 -- Patient seen on arrival. 77-year-old female with history of subaortic resection for arrhythmia remotely, pulmonary embolism, now on Coumadin, recently diagnosed with pneumonia and treated with doxycycline, here with worsening generalized weakness over the past couple weeks, now severe. ECG reviewed and interpreted by me: Bradycardic 40 bpm, left bundle branch block pattern, concern for third-degree heart block versus second-degree type II. Patient is on diltiazem. Patient has no chest pain but has had some dyspnea on exertion. I will check a BNP to assess for failure and troponin for ACS. Patient has been taking her levothyroxine but consider hypothyroidism. I will check a TSH and free T4. Patient is severely bradycardic, she is symptomatic. She is hypertensive here today. Pacer pads have been placed. Patient is on media monitor. 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 11:18 -- I spoke with Dr. Christopher (cardiology at [facility]) - will accept patient in transfer. Awaiting bed placement. Patient reassessed multiple times - remains bradycardic and hypertensive. Saturating well and no resp distress. Mentating well. 11:30 -- Trop nl. BNP elevated 1039. I attempted to contact the patient's daughter who is a physician and left a message on her voicemail. HPI General Mode of arrival: ambulatory. Date/Time Provider Initiated Documentation: 08/13/18 10:15. Limitations to Documentation: no limitations. Information obtained by: patient. HPI Narrative: 77-year-old female with past medical history of subaortic resection in 1994, pulmonary embolism now on Coumadin, on diltiazem 180 mg daily, here with chief complaint of weakness. Patient was seen here in the emergency department on 08/04/2018 and diagnosed with atypical pneumonia. She has been treated with doxycycline and does note some improvement in her cough. Today she followed up with her primary care physician for worsening generalized weakness. Weakness is severe and worse with exertion. She has no associated chest pain. She does continue to have intermittent productive cough. No fever. No leg swelling or calf tenderness. Patient does follow with cardiology at [facility]. Related Data Home Medications Medication Instructions Recorded Confirmed levothyroxine 3 - 4 tab PO DAILY #300 tab-cap NS 11/15/17 08/13/18 warfarin 5 mg tablet 5 mg PO DAILY #90 tab 02/05/18 08/13/18 doxycycline hyclate 100 mg PO BID #20 tab 08/04/18 08/13/18 hydrocodone-chlorpheniramine 5 ml PO Q12H PRN 08/04/18 08/13/18 Tiazac 180 mg capsule,extended 180 mg PO BID #90 cap NS 08/08/18 08/13/18 release Previous Rx's Medication Instructions Recorded levothyroxine 3 - 4 tab PO DAILY #300 tab-cap NS 11/15/17 warfarin 5 mg tablet 5 mg PO DAILY #90 tab 02/05/18 doxycycline hyclate 100 mg PO BID #20 tab 08/04/18 Tiazac 180 mg capsule,extended 180 mg PO BID #90 cap NS 08/08/18 release Allergies Allergy/AdvReac Type Severity Reaction Status Date / Time lidocaine Allergy Severe rash Unverified 08/04/18 13:52 talc Allergy Severe TALC IN Unverified 08/04/18 13:52 PILLS diphenhydramine Allergy Unknown CAN'T TAKE Unverified 08/04/18 13:52 ANY ANTIHISTAMINES chlorthalidone AdvReac Severe H/ Unverified 08/04/18 13:52 ciprofloxacin HCl AdvReac Intermediate HEART Unverified 08/04/18 13:52 [From Cipro] ARRTHY metoprolol AdvReac Intermediate HEART Unverified 08/04/18 13:52 ARRYTH gabapentin AdvReac Mild DIZZINESS, Unverified 08/04/18 13:52 LIGHTHEADED hydrochlorothiazide AdvReac Mild STOP Unverified 08/04/18 13:52 VOIDING famotidine [From Pepcid] AdvReac Unknown unknown Unverified 08/04/18 13:52 GARLIC Allergy Severe THROAT Uncoded 08/04/18 13:52 SWELLS LOCAL ANESTHETICS Allergy Intermediate Skin Rash Uncoded 08/04/18 13:52 tape Allergy Mild Skin Rash Uncoded 08/04/18 13:52 all antihistimines AdvReac Uncoded 08/13/18 10:39 General Stated Complaint: GenMedical PAOLA: 2 Review of Systems Review of Systems All systems reviewed & are unremarkable except as noted in HPI and below Constitutional Denies fever(s) and Reports weakness Cardiovascular Reports dyspnea and Reports dyspnea on exertion Respiratory Reports cough, Reports dyspnea and Reports dyspnea on exertion Neurologic Reports weakness [facility] Surgical History Biopsy of breast (~06/1987) HEART SURGERY (~12/1994) Hysterectomy, Laproscopic (~1984) Meniscectomy Open Carpal Tunnel release Tonsillectomy (~1945) Family History Mother Heart failure Heart disease Pneumonia Father Personal history of malignant neoplasm Sister Personal history of malignant neoplasm Grandfather Heart disease Stroke Grandfather Heart failure Personal history of malignant neoplasm Grandmother Personal history of malignant neoplasm Grandmother No problems noted. Social History Smoking/Tobacco Use Status: Never Alcohol Intake: never Drug use: Never Duration: 15-30 minutes/day Do you feel safe at home: Yes Do you feel safe in your relationship?: Yes Exam Const General: cooperative and no acute distress HENMT Mouth: moist mucous membranes Eyes Conjunctivae: normal conjunctivae Sclera: normal sclerae Neck Neck: supple Lymphatic: no lymphadenopathy noted Resp Effort & Inspection: normal respiratory effort, able to speak in complete sentences, cough, not tachypneic and other (Intermittent cough) Auscultation: clear to auscultation bilaterally, no rales, no rhonchi and no wheezes Cardio Jugular venous pressure: no JVD Rate: bradycardic Rhythm: regular rhythm Pulses: radial pulses present GI Palpation: soft, not firm, no guarding, no masses, not rigid and nontender Skin General skin exam: no rashes or lesions noted Neuro General: alert, awake, oriented x3 and tone normal Extrem General: no calf tenderness and no edema Psych Appearance: grossly normal Mental Status: mental status grossly normal Course Vital Signs Temperature 37.2 C 08/13/18 10:17 Pulse 40 L 08/13/18 10:17 Respiratory Rate 14 08/13/18 10:17 Blood Pressure 177/47 H 08/13/18 10:17 Pulse Oximetry 95 08/13/18 10:17 Temperature 37.2 C 08/13/18 10:17 Temperature Source Skin 08/13/18 10:17 Pulse 40 L 08/13/18 10:17 Respiratory Rate 14 08/13/18 10:17 Respiratory Effort 08/13/18 10:36 Blood Pressure 177/47 H 08/13/18 10:17 Blood Pressure Position Sitting 08/13/18 10:17 Pulse Oximetry 95 08/13/18 10:17 Oxygen Delivery Method Room Air 08/13/18 10:17 Oxygen Flow Rate 0 08/13/18 10:17 Lab/Test Results Lab/Test Results: Laboratory Tests Range/Units 08/13/18 10:25 WBC (4.4-10.8) k/cumm 13.08 H RBC (4.00-5.20) m/cumm 4.97 Hgb (12.0-15.5) g/dL 14.3 Hct (36.0-46.0) % 44.4 MCV (80-95) fL 89.3 MCH (27.0-33.0) pg 28.8 MCHC (32.0-36.0) g/dL 32.2 RDW (11.7-14.6) % 15.6 H Plt Count (130-400) x1000/uL 216 MPV (8.0-11.0) fL 10.7 Immature Gran % 1.9 Neutrophils % 70.6 Lymphocytes % 16.5 Monocytes % 9.8 Eosinophils % 1.0 Basophils % 0.2 Absolute Neutrophils (1.2-6.7) k/cumm 9.23 H Absolute Lymphocytes (1.2-3.4) k/cumm 2.16 Absolute Monocytes (0.11-0.7) k/cumm 1.28 H Absolute Eosinophils (0.0-0.7) k/cumm 0.13 Absolute Basophils (0.0-0.2) k/cumm 0.03
[2018-08-13 11:03] LABS: ALT 54 U/L (12-78); AST 22 U/L (15-37); Albumin 3.5 g/dL (3.4-5.0); Alkaline Phosphatase 85 U/L (46-116); Anion Gap 10.1 mmol/L (3-11); BUN 26 mg/dL (7-18); Bilirubin, Total 0.7 mg/dL (0.2-1.0); CO2 25.9 mmol/L (21.0-32.0); CREATININE 1.26 mg/dL (0.55-1.02); Calcium 9.3 mg/dL (8.5-10.1); Chloride 102 mmol/L (98-107); Estimated GFR 41.18 (mL/min/1.73m2); Glucose 129 mg/dL (70-100); INR 1.7 (0.9-1.1); Magnesium 2.3 mg/dL (1.8-2.4); Potassium 3.9 mmol/L (3.5-5.1); Prothrombin Time 16.9 sec (9.3-11.0); Sodium 138 mmol/L (136-145); Total Protein 7.1 g/dL (6.4-8.2)
[2018-08-13 11:04] LABS: Troponin I < 0.02 ng/mL (0.00-0.06)
--- NOTE | 2018-08-13 11:06 | ED.GENADUL_ITS ---
Discharge Plan Disposition Patient Disposition: MONTEZ HERRMANN ([facility]) Discharge Details Chief Complaint: GenMedical Clinical Impression: AV heart block, Bundle branch block, left Primary Care Provider: Lexus Hayes ED Provider: Tramaine Raygoza Home Meds and New Rx's Prescriptions: No Action levothyroxine 25 MCG tablet 3 - 4 tab PO DAILY Qty: 300 RF: 4 warfarin 5 mg tablet 5 mg PO DAILY Qty: 90 RF: 4 diltiazem HCl [Tiazac] 180 mg capsule,extended release 24 hr 180 mg PO BID Qty: 90 RF: 4 hydrocodone-chlorpheniramine 10-8 mg/5 mL Suspension,Extended Rel 12 Hr 5 ml PO Q12H PRNRF: 0 doxycycline hyclate 100 mg tablet 100 mg PO BID Qty: 20 RF: 0 Medical Decision Making 11:00 -- Patient seen on arrival. 77-year-old female with history of subaortic resection for arrhythmia remotely, pulmonary embolism, now on Coumadin, recently diagnosed with pneumonia and treated with doxycycline, here with worsening generalized weakness over the past couple weeks, now severe. ECG reviewed and interpreted by me: Bradycardic 40 bpm, left bundle branch block pattern, concern for third-degree heart block versus second-degree type II. Patient is on diltiazem. Patient has no chest pain but has had some dyspnea on exertion. I will check a BNP to assess for failure and troponin for ACS. Patient has been taking her levothyroxine but consider hypothyroidism. I will check a TSH and free T4. Patient is severely bradycardic, she is symptomatic. She is hypertensive here today. Pacer pads have been placed. Patient is on playground monitor. 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 11:18 -- I spoke with Dr. Christopher (cardiology at [facility]) - will accept patient in transfer. Awaiting bed placement. Patient reassessed multiple times - remains bradycardic and hypertensive. Saturating well and no resp distress. Mentating well. 11:30 -- Trop nl. BNP elevated 1039. I attempted to contact the patient's daughter who is a physician and left a message on her voicemail. HPI General Mode of arrival: ambulatory . Date/Time Provider Initiated Documentation: 08/13/18 10:15 . Limitations to Documentation: no limitations . Information obtained by: patient . HPI Narrative: 77-year-old female with past medical history of subaortic resection in 1994, pulmonary embolism now on Coumadin, on diltiazem 180 mg daily, here with chief complaint of weakness. Patient was seen here in the emergency department on 08/04/2018 and diagnosed with atypical pneumonia. She has been treated with doxycycline and does note some improvement in her cough. Today she followed up with her primary care physician for worsening generalized weakness. Weakness is severe and worse with exertion. She has no associated chest pain. She does continue to have intermittent productive cough. No fever. No leg swelling or calf tenderness. Patient does follow with cardiology at [facility]. Related Data Home Medications Medication Instructions Recorded Confirmed levothyroxine 3 - 4 tab PO DAILY #300 tab-cap NS 11/15/17 08/13/18 warfarin 5 mg tablet 5 mg PO DAILY #90 tab 02/05/18 08/13/18 doxycycline hyclate 100 mg PO BID #20 tab 08/04/18 08/13/18 hydrocodone-chlorpheniramine 5 ml PO Q12H PRN 08/04/18 08/13/18 Tiazac 180 mg capsule,extended 180 mg PO BID #90 cap NS 08/08/18 08/13/18 release Previous Rx's Medication Instructions Recorded levothyroxine 3 - 4 tab PO DAILY #300 tab-cap NS 11/15/17 warfarin 5 mg tablet 5 mg PO DAILY #90 tab 02/05/18 doxycycline hyclate 100 mg PO BID #20 tab 08/04/18 Tiazac 180 mg capsule,extended 180 mg PO BID #90 cap NS 08/08/18 release Allergies Allergy/AdvReac Type Severity Reaction Status Date / Time lidocaine Allergy Severe rash Unverified 08/04/18 13:52 talc Allergy Severe TALC IN Unverified 08/04/18 13:52 PILLS diphenhydramine Allergy Unknown CAN'T TAKE Unverified 08/04/18 13:52 ANY ANTIHISTAMINES chlorthalidone AdvReac Severe H/ Unverified 08/04/18 13:52 ciprofloxacin HCl AdvReac Intermediate HEART Unverified 08/04/18 13:52 [From Cipro] ARRTHY metoprolol AdvReac Intermediate HEART Unverified 08/04/18 13:52 ARRYTH gabapentin AdvReac Mild DIZZINESS, Unverified 08/04/18 13:52 LIGHTHEADED hydrochlorothiazide AdvReac Mild STOP Unverified 08/04/18 13:52 VOIDING famotidine [From Pepcid] AdvReac Unknown unknown Unverified 08/04/18 13:52 GARLIC Allergy Severe THROAT Uncoded 08/04/18 13:52 SWELLS LOCAL ANESTHETICS Allergy Intermediate Skin Rash Uncoded 08/04/18 13:52 tape Allergy Mild Skin Rash Uncoded 08/04/18 13:52 all antihistimines AdvReac Uncoded 08/13/18 10:39 General Stated Complaint: GenMedical PAOLA: 2 Review of Systems Review of Systems All systems reviewed & are unremarkable except as noted in HPI and below Constitutional Denies fever(s) and Reports weakness Cardiovascular Reports dyspnea and Reports dyspnea on exertion Respiratory Reports cough, Reports dyspnea and Reports dyspnea on exertion Neurologic Reports weakness [facility] Surgical History Biopsy of breast (~06/1987) HEART SURGERY (~12/1994) Hysterectomy, Laproscopic (~1984) Meniscectomy Open Carpal Tunnel release Tonsillectomy (~1945) Family History Mother Heart failure Heart disease Pneumonia Father Personal history of malignant neoplasm Sister Personal history of malignant neoplasm Grandfather Heart disease Stroke Grandfather Heart failure Personal history of malignant neoplasm Grandmother Personal history of malignant neoplasm Grandmother No problems noted. Social History Smoking/Tobacco Use Status: Never Alcohol Intake: never Drug use: Never Duration: 15-30 minutes/day Do you feel safe at home: Yes Do you feel safe in your relationship?: Yes Exam Const General: cooperative and no acute distress HENMT Mouth: moist mucous membranes Eyes Conjunctivae: normal conjunctivae Sclera: normal sclerae Neck Neck: supple Lymphatic: no lymphadenopathy noted Resp Effort & Inspection: normal respiratory effort, able to speak in complete sentences, cough, not tachypneic and other (Intermittent cough) Auscultation: clear to auscultation bilaterally, no rales, no rhonchi and no wheezes Cardio Jugular venous pressure: no JVD Rate: bradycardic Rhythm: regular rhythm Pulses: radial pulses present GI Palpation: soft, not firm, no guarding, no masses, not rigid and nontender Skin General skin exam: no rashes or lesions noted Neuro General: alert, awake, oriented x3 and tone normal Extrem General: no calf tenderness and no edema Psych Appearance: grossly normal Mental Status: mental status grossly normal Course Vital Signs Temperature 37.2 C 08/13/18 10:17 Pulse 40 L 08/13/18 10:17 Respiratory Rate 14 08/13/18 10:17 Blood Pressure 177/47 H 08/13/18 10:17 Pulse Oximetry 95 08/13/18 10:17 Temperature 37.2 C 08/13/18 10:17 Temperature Source Skin 08/13/18 10:17 Pulse 40 L 08/13/18 10:17 Respiratory Rate 14 08/13/18 10:17 Respiratory Effort 08/13/18 10:36 Blood Pressure 177/47 H 08/13/18 10:17 Blood Pressure Position Sitting 08/13/18 10:17 Pulse Oximetry 95 08/13/18 10:17 Oxygen Delivery Method Room Air 08/13/18 10:17 Oxygen Flow Rate 0 08/13/18 10:17 Lab/Test Results Lab/Test Results: Laboratory Tests Range/Units 08/13/18 10:25 WBC (4.4-10.8) k/cumm 13.08 H RBC (4.00-5.20) m/cumm 4.97 Hgb (12.0-15.5) g/dL 14.3 Hct (36.0-46.0) % 44.4 MCV (80-95) fL 89.3 MCH (27.0-33.0) pg 28.8 MCHC (32.0-36.0) g/dL 32.2 RDW (11.7-14.6) % 15.6 H Plt Count (130-400) x1000/uL 216 MPV (8.0-11.0) fL 10.7 Immature Gran % 1.9 Neutrophils % 70.6 Lymphocytes % 16.5 Monocytes % 9.8 Eosinophils % 1.0 Basophils % 0.2 Absolute Neutrophils (1.2-6.7) k/cumm 9.23 H Absolute Lymphocytes (1.2-3.4) k/cumm 2.16 Absolute Monocytes (0.11-0.7) k/cumm 1.28 H Absolute Eosinophils (0.0-0.7) k/cumm 0.13 Absolute Basophils (0.0-0.2) k/cumm 0.03
[2018-08-13 11:11] LABS: NT-proBNP 1039 pg/mL
[2018-08-13 11:55] LABS: TSH (W/Ref FT4) 3.48 uIU/mL (0.358-3.74)
== END 2018-08-13 12:35 | disposition short-term general hospital (02) ==
PROVIDERS: Emergency Provider Student in an Organized Health Care Education/Training Program; PCP Internal Medicine
DX: I44.2 Atrioventricular block, complete (principal); I44.7 Left bundle-branch block, unspecified; R06.09 Other forms of dyspnea; I10 Essential (primary) hypertension; R00.1 Bradycardia, unspecified; Z79.01 Long term (current) use of anticoagulants; Z86.711 Personal history of pulmonary embolism
CPT/HCPCS: 36415; 80053; 93005; 99285; 71045; 83735; 83880; 84443; 84484; 85025; 85610; 93010

== ENCOUNTER 2018-10-05 10:40 | Emergency (ER) | payer MEDICARE, MEDICAID, SELFPAY ==
[2018-10-05 10:50] VITALS: BP 181/71; PULSE 83; RESP 17; TEMP 36.6; O2SAT 98
[2018-10-05 10:52] VITALS: O2SAT 95
[2018-10-05 11:00] VITALS: O2SAT 95
[2018-10-05 11:01] VITALS: BP 134/57; PULSE 70; O2SAT 96
[2018-10-05 11:10] VITALS: O2SAT 95
--- NOTE | 2018-10-05 11:21 | ED.GENADUL_ITS ---
Discharge Plan Disposition Patient Disposition: HOME Condition: Good Discharge Details Chief Complaint: GenMedical Clinical Impression: Elevated blood pressure reading, Essential hypertension, Puncture wound of foot Primary Care Provider: Venkat Delgado ED Provider: Fredo Lobo Home Meds and New Rx's Prescriptions: Continued lisinopril 10 mg tablet 10 mg PO DAILY Qty: 90 RF: 3 levothyroxine 25 mcg tablet 75 - 100 mcg PO DAILY Qty: 300 RF: 4 warfarin 5 mg tablet 5 mg PO DAILY Qty: 90 RF: 4 hydrocodone-chlorpheniramine 10-8 mg/5 mL Suspension,Extended Rel 12 Hr 5 ml PO Q12H PRNRF: 0 Discharge Instructions Instructions: Puncture Wound (ED), Hypertension (ED) Additional Instructions: Please follow-up with your primary care provider for reassessment of your elevated blood pressure and any medication adjustments as needed. Continue to w atch your puncture wound of your foot and return immediately to the emergency department or seek your primary care provider for signs of infection. Your tetanus is due in 2020 so you are currently up-to-date for minor wounds. Return immediately to the emergency department if you begin having any chest pain, shortness of breath, or any other symptoms you are concerned about. Referrals: Venkat Delgado MD [Primary Care Provider] - (Keep your scheduled appointment with your primary care provider) Discharge Data Discharge Date/Time-TO BE ENTERED AT DEPARTURE: 10/05/18 11:28 Medical Decision Making Patient presenting to the emergency department for chief complaint of elevated blood pressure. Patient states that last night and this morning she had blood pressure readings in the 200s on her wrist blood pressure cuff. She states that the yesterday and the day before she felt run down due to the heat in the [facility] but today has no symptoms at all and feels significantly better. She does report that she took the blood pressure reading yesterday before taking her lisinopril and that she has been attempting to take this later and later in the day. Patient denies any syncope, lightheadedness, neurological symptoms, chest pain palpitations dyspnea. Patient does state that she has an appoint with her primary care provider today at 1130 for recheck of this but given to issues in the 200s and her sister having a stroke she was concerned and came to the emergency department. Patient reports now she is asymptomatic. At my time of assessment patient had blood pressure reading on the automatic cuff of 130s/60s. Physical exam is unremarkable with normal cardiac exam, clear lung sounds, no neurological symptoms noted. Patient recently had a pacemaker placed in July but denies any perceivable abnormalities that has happened. Given this patient was offered EKG and lab work but given that she is otherwise asymptomatic with no abnormalities on exam and blood pressure returning to normal she is refusing any work-up at this time. Patient has no signs of hypertensive urgency or emergency no worrisome physical exam findings at this time. Patient does state that either yesterday or the day before she did get a slight puncture wound while waiting in the [facility]. Patient is unaware of what puncture wound was caused from but is concerned about her tetanus status. Wound was visualized to right foot and shows small superficial puncture with no signs of infection, no purulent drainage, no other worrisome findings of left lower extremity. Patient's tetanus is up-to-date at this time and there are no signs of infection warranting antibiotic. Again after discussing up-to-date tetanus patient was again offered EKG and lab work but she states that she would rather follow-up with her primary care provider. I feel that this is reasonable at this time. Return precautions were discussed. After discussion of diagnosis and plan of care patient has no further needs, questions, or concerns and states clear understanding to return to the emergency department for any worsening symptoms. HPI General Mode of arrival: ambulatory . Date/Time Provider Initiated Documentation: 10/05/18 10:57 . Limitations to Documentation: no limitations . Information obtained by: patient, RN notes reviewed and old records reviewed . History of Present Illness 77 year old F presents to the emergency department with the chief complaint of Elevated blood pressure, Quality is described as other (Denies pain), Patient reports no radiation. Patient started experiencing this day(s) (1) and it has been constant. No relieving factors improve symptom(s), No exacerbating factors reported . Patient did receive the following treatments prior to arrival, none and other (Took her lisinopril last night) Related Data Home Medications Medication Instructions Recorded Confirmed warfarin 5 mg tablet 5 mg PO DAILY #90 tab 02/05/18 09/26/18 hydrocodone-chlorpheniramine 5 ml PO Q12H PRN 08/04/18 09/26/18 levothyroxine 25 mcg tablet 75 - 100 mcg PO DAILY #300 tab-cap 09/26/18 09/26/18 NS lisinopril 10 mg tablet 10 mg PO DAILY #90 tab 09/26/18 09/26/18 Previous Rx's Medication Instructions Recorded warfarin 5 mg tablet 5 mg PO DAILY #90 tab 02/05/18 levothyroxine 25 mcg tablet 75 - 100 mcg PO DAILY #300 tab-cap 09/26/18 NS lisinopril 10 mg tablet 10 mg PO DAILY #90 tab 09/26/18 Allergies Allergy/AdvReac Type Severity Reaction Status Date / Time lidocaine Allergy Severe rash Unverified 09/26/18 10:50 talc Allergy Severe TALC IN Unverified 09/26/18 10:50 PILLS diphenhydramine Allergy Unknown CAN'T TAKE Unverified 09/26/18 10:50 ANY ANTIHISTAMINES chlorthalidone AdvReac Severe H/ Unverified 09/26/18 10:50 ciprofloxacin HCl AdvReac Intermediate HEART Unverified 09/26/18 10:50 [From Cipro] ARRTHY metoprolol AdvReac Intermediate HEART Unverified 09/26/18 10:50 ARRYTH gabapentin AdvReac Mild DIZZINESS, Unverified 09/26/18 10:50 LIGHTHEADED hydrochlorothiazide AdvReac Mild STOP Unverified 09/26/18 10:50 VOIDING famotidine [From Pepcid] AdvReac Unknown unknown Unverified 09/26/18 10:50 GARLIC Allergy Severe THROAT Uncoded 09/26/18 10:50 SWELLS LOCAL ANESTHETICS Allergy Intermediate Skin Rash Uncoded 09/26/18 10:50 tape Allergy Mild Skin Rash Uncoded 09/26/18 10:50 all antihistimines AdvReac Uncoded 09/26/18 10:50 General Stated Complaint: GenMedical PAOLA: 3 Review of Systems Constitutional Denies fever(s), Reports malaise (Now resolved) and Denies weakness Cardiovascular Reports as per HPI, Denies chest pain, Denies syncope, Denies rapid heart rate, Denies irregular heart rhythm, Denies lightheadedness, Denies palpitations and Denies dyspnea Respiratory Denies dyspnea Neurologic Denies syncope and Denies weakness Endocrine Denies palpitations PFSH Surgical History Biopsy of breast (~06/1987) HEART SURGERY (~12/1994) Hysterectomy, Laproscopic (~1984) Meniscectomy Open Carpal Tunnel release Tonsillectomy (~1945) Family History Mother Heart failure Heart disease Pneumonia Father Personal history of malignant neoplasm Sister Personal history of malignant neoplasm Grandfather Heart disease Stroke Grandfather Heart failure Personal history of malignant neoplasm Grandmother Personal history of malignant neoplasm Grandmother No problems noted. Social History Smoking/Tobacco Use Status: Never Alcohol Intake: never Drug use: Never Duration: 15-30 minutes/day Do you feel safe at home: Yes Do you feel safe in your relationship?: Yes Exam Const General: cooperative, healthy appearing, comfortable, no acute distress, not diaphoretic and not ill appearing Nutritional Appearance: average body habitus Orientation: alert, awake and oriented x3 Limitations: mental status not altered Neck Neck: normal visual inspection, full ROM, trachea midline, supple and no anterior neck swelling Resp Effort & Inspection: normal respiratory effort and able to speak in complete sentences Auscultation: clear to auscultation bilaterally Cardio Jugular venous pressure: no JVD Palpation: normal PMI Rate: regular rate Rhythm: regular rhythm Heart Sounds: S1 normal, S2 normal, no click, no gallops, no murmurs and no rubs Pulses: radial pulses present bilaterally 2+ Neuro General: alert, awake, oriented x3, gait normal, tone normal, moves all extremities and no focal motor deficits Motor: muscle tone normal throughout Course Vital Signs Temperature 36.6 C 10/05/18 10:50 Pulse 83 10/05/18 10:50 Respiratory Rate 17 10/05/18 10:50 Blood Pressure 181/71 H 10/05/18 10:50 Pulse Oximetry 98 10/05/18 10:50 Temperature 36.6 C 10/05/18 10:50 Temperature Source Skin 10/05/18 10:50 Pulse 83 10/05/18 10:50 Respiratory Rate 17 10/05/18 10:50 Respiratory Effort Non-Labored 10/05/18 10:55 Blood Pressure 181/71 H 10/05/18 10:50 Blood Pressure Position Sitting 10/05/18 10:50 Pulse Oximetry 98 10/05/18 10:50 Oxygen Delivery Method Room Air 10/05/18 10:50 Oxygen Flow Rate 0 10/05/18 10:50
== END 2018-10-05 11:28 | disposition home or self-care (01) ==
PROVIDERS: Emergency Provider Nurse Practitioner Family; PCP Internal Medicine
DX: S91.331A Puncture wound without foreign body, right foot, initial encounter (principal); I10 Essential (primary) hypertension; W45.8XXA Other foreign body or object entering through skin, initial encounter; Z53.29 Procedure and treatment not carried out because of patient's decision for other reasons
CPT/HCPCS: 99282

== ENCOUNTER 2018-11-23 16:00 | Outpatient (REF) | payer MEDICARE, MEDICAID, SELFPAY ==
[2018-11-23 17:05] LABS: Bilirubin Negative (Negative); Blood Moderate (Negative); Clarity Clear (Clear); Glucose Negative (Negative); Ketones Negative (Negative); Leukocyte Esterase Large (Negative); Nitrite Negative (Negative); Urobilinogen 0.2 EU/dL (Up TO 0.2); pH 5.5 (5-8)
[2018-11-23 17:30] LABS: WBC >50 HPF (0-5)
[2018-11-23 17:31] LABS: Bacteria Few HPF (Negative); C & S Indicated? C&S Done As Ordered; Epithelial Cells Many HPF (Negative)
== END 2018-11-23 16:20 ==
LOC: LBN 16:00
PROVIDERS: PCP Family Medicine; Visit Provider Family Medicine
DX: R30.0 Dysuria (principal)
CPT/HCPCS: 81003; 81015; 87086

== ENCOUNTER 2019-01-11 09:13 | Outpatient (CLI) | payer MEDICARE, MEDICAID, SELFPAY ==
[2019-01-11 13:13] LABS: ALT 24 U/L (14-59); AST 27 U/L (15-37); Albumin 3.8 g/dL (3.4-5.0); Alkaline Phosphatase 83 U/L (46-116); Anion Gap 9.8 mmol/L (3-11); BUN 24 mg/dL (7-18); Bilirubin, Total 0.5 mg/dL (0.2-1.0); CO2 26.2 mmol/L (21.0-32.0); Calcium 9.1 mg/dL (8.5-10.1); Chloride 106 mmol/L (98-107); Cholesterol 241 mg/dL (50-200); Glucose 109 mg/dL (70-100); HDL Cholesterol 44 mg/dL (40-60); Potassium 4.5 mmol/L (3.5-5.1); Sodium 142 mmol/L (136-145); TSH 1.62 uIU/mL (0.36-3.74); Total Protein 7.1 g/dL (6.4-8.2)
[2019-01-11 13:24] LABS: Calculated LDL 177 mg/dL; Triglyceride 104 mg/dL (30-150)
== END 2019-01-11 09:33 ==
PROVIDERS: PCP Family Medicine; Visit Provider Internal Medicine
DX: I10 Essential (primary) hypertension (principal)
CPT/HCPCS: 36415; 80053; 80061; 84443

== ENCOUNTER 2019-10-16 03:54 | Outpatient (CLI) | payer MEDICARE, MEDICAID, SELFPAY ==
[2019-10-16 10:44] LABS: HCT 42.7 % (36.0-46.0); HGB 13.5 g/dL (12.0-15.5); Mean Corp. HGB Concentration 31.6 g/dL (32.0-36.0); Mean Corpuscular Volume 88.4 fL (80-95); Mean Platelet Volume 9.8 fL (8.0-11.0); Platelet Count 236 x1000/uL (130-400); RBC 4.83 m/cumm (4.00-5.20); RBC Distribution Width 15.1 % (11.7-14.6); White Blood Cell Count 6.84 k/cumm (4.4-10.8)
[2019-10-16 11:42] LABS: ALT 29 U/L (14-59); AST 28 U/L (15-37); Albumin 3.7 g/dL (3.4-5.0); Alkaline Phosphatase 82 U/L (46-116); Anion Gap 10.4 mmol/L (3-11); BUN 22 mg/dL (7-18); Bilirubin, Total 0.4 mg/dL (0.2-1.0); CO2 24.6 mmol/L (21.0-32.0); CREATININE 0.92 mg/dL (0.55-1.02); Calcium 9.1 mg/dL (8.5-10.1); Calculated LDL 154 mg/dL (<100); Chloride 109 mmol/L (98-107); Cholesterol 213 mg/dL (<200); Estimated GFR 59.04 (mL/min/1.73m2); Glucose 135 mg/dL (74-106); HDL Cholesterol 37 mg/dL (40-60); Potassium 4.1 mmol/L (3.5-5.1); Sodium 144 mmol/L (136-145); TSH 0.88 uIU/mL (0.36-3.74); Total Protein 6.8 g/dL (6.4-8.2); Triglyceride 111 mg/dL (<150)
[2019-10-16 11:53] LABS: C-Reactive Protein 0.76 mg/dL (0.0-0.3); Uric Acid 6.2 mg/dL (2.6-6.0)
[2019-10-16 11:54] LABS: ESR 27 mm/hr (0-30)
== END 2019-10-16 04:14 ==
PROVIDERS: PCP Family Medicine; Visit Provider Family Medicine
DX: I10 Essential (primary) hypertension (principal); E03.9 Hypothyroidism, unspecified; Z79.01 Long term (current) use of anticoagulants; M19.041 Primary osteoarthritis, right hand; M19.042 Primary osteoarthritis, left hand; E78.5 Hyperlipidemia, unspecified; E79.0 Hyperuricemia without signs of inflammatory arthritis and tophaceous disease
CPT/HCPCS: 36415; 80053; 80061; 85027; 85652; 84443; 84550; 86140

== ENCOUNTER 2019-12-06 02:35 | Outpatient (CLI) | payer MEDICARE, MEDICAID, SELFPAY ==
[2019-12-06 11:37] LABS: Hemoglobin A1C 6.4 % (<5.7)
[2019-12-06 12:32] LABS: Glucose 112 mg/dL (74-106)
== END 2019-12-06 02:55 ==
PROVIDERS: PCP Family Medicine; Visit Provider Family Medicine
DX: R73.9 Hyperglycemia, unspecified (principal)
CPT/HCPCS: 36415; 82947; 83036